=== PATIENT | female | born 1955 | race Caucasian/White ===

== ENCOUNTER 2022-08-06 14:59 | Inpatient (IN) ==
[2022-08-06] MEDS ORDERED: SODIUM CHLORIDE 0.9% 500 ML IV STA (15:16)
--- NOTE | 2022-08-06 15:24 | Emergency Department Note ---
Impression & Plan Anemia, Weakness ED Provider Note NAME: TELLY SANCHEZ AGE: 66 SEX: F : 1955 ARRIVES VIA: Walk-In INFORMANT: Patient, ED PROVIDER(S): Mathieu Obregon DO CHIEF COMPLAINT: Weakness HPI: The patient is a 66-year-old female who presented to the emergency department for an evaluation of generalized weakness. The patient states that she recently moved to our area from [place]. She is originally from [facility] but lived in [place] most recently. She started having the symptoms last fall. She was having weakness and was diagnosed with anemia. She had a complete GI work-up which included an upper and a lower endoscopy. No source for her anemia could be found. She was doing well. She has no significant past medical history but does take a proton pump inhibitor because of the aforementioned issues. She states that she was getting established with a new primary care physician. She started having return of her weakness especially over the last few days. She had laboratory studies as well as an EKG. She was told to go to the emergency department because of her hemoglobin being low. She denies having any black or bloody bowel movements. She does complain of some generalized weakness especially with exertion. She complains of shortness of breath with exertion. ROS: See above HPI for pertinent positives & negatives. A total of 10 systems reviewed and were otherwise negative. PAST MEDICAL HISTORY: See Below PAST SURGICAL HISTORY: See Below FAMILY HISTORY: See Below SOCIAL HISTORY: See Below HOME MEDICATIONS: See Below ALLERGIES: See Below VITALS: See Below PHYSICAL EXAMINATION: GENERAL: Patient is awake alert in no acute distress patient is resting comfortably and showing no signs of anxiety EYES: The conjunctivae are pale. The pupils are round and reactive. EARS, NOSE, MOUTH AND THROAT: The nose is without any evidence of any deformity. Mucous membranes are moist. Tongue is midline. NECK: The neck is nontender and supple. RESPIRATORY: Normal respiratory effort is noted there is no evidence of wheezing rhonchi or rales CARDIOVASCULAR: Tachycardic but regular heart sounds were noted to auscultation. There is no definite murmur. GASTROINTESTINAL: The abdomen is soft. Abdomen is nontender. Rectal exam revealed brown stool which was heme-negative. MUSCULOSKELETAL/EXTREMITIES: There is no evidence of gross deformity full range of motion is noted in the hips and shoulders. SKIN: There is no obvious evidence of any rash. There are no petechiae, pallor or cyanosis noted. NEUROLOGIC: Patient is awake alert and oriented x3. MEDICAL DECISION MAKING: The patient is a 66-year-old female who presented to the emergency department for an evaluation of generalized weakness. The patient has had similar episodes in the past. She has undergone a work-up last fall for anemia. She is never required blood transfusion. She had an upper as well as lower endoscopy which did not explain the patient's symptoms. The patient started having worsening symptoms and she presented to a new family doctor locally. She recently moved to the area. She was called today and told to go directly to the emergency depa rtment because the results of her blood draw. She was found to have significant anemia in the emergency department. Due to concerns of the significant anemia as well as her tachycardia and her symptoms I do feel the patient does require blood transfusion at this time. I did consent the patient for blood transfusion. I discussed her condition with the on-call [facility] hospitalist. They have agreed to evaluate the patient in the emergency department for further management and disposition. Triage Nursing notes reviewed. Prior medical records reviewed Vital Signs: reviewed and remarkable for tachycardia. Differential diagnosis: Infection, dehydration, metabolic abnormality, hypo/hyperglycemia, electrolyte disturbance, anemia, hypoxia, cardiac sources, intracerebral event, toxicologic, neurologic, as well as other pathologies. ER treatment provided: See below Diagnostics interpreted by me: ECG: EKG was obtained in the emergency department. My interpretation is normal sinus rhythm at [address] segment depressions were noted with inferior Q waves. No previous tracing was available. There was no ectopy. Cardiac Monitoring: An order was placed for continuous cardiac monitoring. The monitor shows a rate of 101 bpm with sinus tachycardia. Laboratory studies: As stated above and show below. Imaging studies: See below. Radiographic imaging was reviewed by myself Consultation(s): I discussed this case with Dr. Rosales [facility] COURSE: Procedures: none Critical Care: I have personally spent greater than 45 minutes of critical care time in the direct management of this patient. This includes bedside care, interpretation of diagnostic studies, and testing, discussion with consultants, patient, and family members, and other required patient management activities. This 45 minutes is in excess of all separately billable procedures. Past Med/Surg History Social History Smoking Status: Former smoker Preferred Language: Hebrew Feels Safe at Home: Yes Allergies Allergies Allergy/AdvReac Type Severity Reaction Status Date / Time No Known Allergies Allergy Unverified 08/06/22 17:01 Home Meds Home Medications Medication Instructions Recorded Confirmed pantoprazole 40 mg tablet,delayed 40 mg PO QAM 08/06/22 08/06/22 release Results & Data (ED) Vital Signs Vital Signs - 24 hr 08/06/22 15:00 08/06/22 15:00 08/06/22 15:15 Temperature 36.6 C Temperature Source Temporal Artery Scan Pulse Rate 121 H 101 H Pulse Rate [Apical] 121 H Respiratory Rate 16 16 Blood Pressure 152/68 H Blood Pressure [Left Arm] 152/68 H Blood Pressure Mean 96 Blood Pressure Mean [Left Arm] 96 Pulse Oximetry 98 98 Sepsis Recent Fever Within 48 Hours No Sepsis New/Unexplained Change in Mental Status N/A Sepsis Action Taken by Nursing No Action Required Home Medications Current Medication List: was personally reviewed by me Laboratory Data Attestation: I reviewed the patient's lab results. 08/06/22 15:53 08/06/22 15:17 Lab Results 08/06/22 08/06/22 08/06/22 Range/Units 15:17 15:17 15:17 WBC 8.58 (4.8-10.8) K/ul RBC 1.35 L (4.20-5.40) M/uL Hgb 4.4 L* (12.0-16.0) g/dl Hct 14.7 L* (37.0-47.0) % MCV 108.9 H (80.0-100.0) fL MCH 32.6 (25.0-34.0) pg MCHC 29.9 L (32.0-36.0) g/dL RDW Coeff of Tiburcio 32.0 H (11.5-14.5) % Plt Count 480 H (130-400) K/uL MPV 12.7 H (9.4-12.4) fL Immature Gran % (Auto) 2.6 % Neut % (Auto) 69.9 % Lymph % (Auto) 8.9 % Clay % (Auto) 17.8 % Eos % (Auto) 0.3 % Baso % (Auto) 0.5 % Reticulocyte % (Auto) 2.8 H (0.5-2.0) % Neut # (Auto) 6.00 (1.40-6.50) K/uL Lymph # (Auto) 0.76 L (1.2-3.4) K/uL Clay # (Auto) 1.53 H (0.11-0.59) K/uL Eos # (Auto) 0.03 (0-0.50) K/uL Baso # (Auto) 0.04 (0-0.2) K/uL Reticulocyte # 0.04 (0.02-0.10) 10^6/uL Immature Gran # (Auto) 0.22 H (0.01-0.20) K/uL Absolute Nucleated RBC 0.09 (0-0.12) K/uL Nucleated RBC % (auto) 1.0 % Platelet Estimate Increased H (Normal) Polychromasia 1+ Hypochromasia Present Anisocytosis Present Tear Drop Cells 2+ Ovalocytes 1+ Schistocytes 1+ PT 11.4 (9.0-12.0) Seconds INR 1.1 (0.9-1.1) APTT 21.8 (21.0-31.0) Seconds PTT Ratio 0.8 Sodium 137 (136-145) mmol/L Potassium 4.2 (3.5-5.1) mmol/L Chloride 105 (98-107) mmol/L Carbon Dioxide 24 (21-32) mmol/L Anion Gap 8 (3-11) BUN 19 (6-23) mg/dl Creatinine 0.87 (0.6-1.2) mg/dl Est Cr Clr Drug Dosing 76.8 ml/min Est GFR ( Amer) 81.0 ml/min Est GFR (Non-Af Amer) 69.9 ml/min BUN/Creatinine Ratio 21.8 H (10-20) Glucose 127 H (70-99(Fasting)) mg/dl Calcium 9.2 (8.5-10.1) mg/dl Total Bilirubin 0.8 (0.2-1.0) mg/dl Direct Bilirubin 0.2 (0-0.2) mg/dl AST 11 L (13-39) U/L ALT 8 (7-52) U/L Alkaline Phosphatase 64 (34-104) U/L Troponin I High Sens 4.3 (0-14) pg/ml Total Protein 7.2 (6.0-8.3) gm/dl Albumin 4.2 (3.4-5.0) gm/dl Globulin 3.0 (2.5-4.0) gm/dl Albumin/Globulin Ratio 1.4 (0.9-2) Lipase 5 L (11-82) U/L SARS-CoV-2, RNA, NAAT (NEGATIVE) Blood Type Blood Type Recheck Antibody Screen Crossmatch 08/06/22 08/06/22 08/06/22 Range/Units 15:17 15:39 16:03 WBC (4.8-10.8) K/ul RBC (4.20-5.40) M/uL Hgb (12.0-16.0) g/dl Hct (37.0-47.0) % MCV (80.0-100.0) fL MCH (25.0-34.0) pg MCHC (32.0-36.0) g/dL RDW Coeff of Tiburcio (11.5-14.5) % Plt Count (130-400) K/uL MPV (9.4-12.4) fL Immature Gran % (Auto) % Neut % (Auto) % Lymph % (Auto) % Clay % (Auto) % Eos % (Auto) % Baso % (Auto) % Reticulocyte % (Auto) (0.5-2.0) % Neut # (Auto) (1.40-6.50) K/uL Lymph # (Auto) (1.2-3.4) K/uL Clay # (Auto) (0.11-0.59) K/uL Eos # (Auto) (0-0.50) K/uL Baso # (Auto) (0-0.2) K/uL Reticulocyte # (0.02-0.10) 10^6/uL Immature Gran # (Auto) (0.01-0.20) K/uL Absolute Nucleated RBC (0-0.12) K/uL Nucleated RBC % (auto) % Platelet Estimate (Normal) Polychromasia Hypochromasia Anisocytosis Tear Drop Cells Ovalocytes Schistocytes PT (9.0-12.0) Seconds INR (0.9-1.1) APTT (21.0-31.0) Seconds PTT Ratio Sodium (136-145) mmol/L Potassium (3.5-5.1) mmol/L Chloride (98-107) mmol/L Carbon Dioxide (21-32) mmol/L Anion Gap (3-11) BUN (6-23) mg/dl Creatinine (0.6-1.2) mg/dl Est Cr Clr Drug Dosing ml/min Est GFR ( Amer) ml/min Est GFR (Non-Af Amer) ml/min BUN/Creatinine Ratio (10-20) Glucose (70-99(Fasting)) mg/dl Calcium (8.5-10.1) mg/dl Total Bilirubin (0.2-1.0) mg/dl Direct Bilirubin (0-0.2) mg/dl AST (13-39) U/L ALT (7-52) U/L Alkaline Phosphatase (34-104) U/L Troponin I High Sens (0-14) pg/ml Total Protein (6.0-8.3) gm/dl Albumin (3.4-5.0) gm/dl Globulin (2.5-4.0) gm/dl Albumin/Globulin Ratio (0.9-2) Lipase (11-82) U/L SARS-CoV-2, RNA, NAAT NEGATIVE (NEGATIVE) Blood Type B Negative Blood Type Recheck B Negative Antibody Screen NEGATIVE Crossmatch See Detail Administered Medications Discontinued Medications Sodium Chloride (Nss) 500 mls @ 999 mls/hr IV .Q31M STA Stop: 08/06/22 15:46 Last Infusion: 08/06/22 15:57 Dose: 0 mls/hr Documented By: Admin: 08/06/22 15:23 Dose: 999 mls/hr Documented By: AB Imaging Data Attestation: I personally reviewed and interpreted this imaging study as follows: My Impression: 1 view chest x-ray was obtained in the emergency department. My interpretation is no free air, no definite filtrate. Radiologist's Impression: Chest X-Ray 08/06/22 16:09 SINGLE VIEW CHEST CLINICAL HISTORY: Generalized weakness. FINDINGS: An AP, portable, upright chest radiograph is obtained. No prior studies are available for comparison at the time of dictation. The examination is degraded by portable technique and apical lordotic positioning. A hiatal hernia is suspected. The heart is top normal for projection noting ather osclerotic calcification of the thoracic aorta. The pulmonary vasculature is noncongested. The lungs and pleural spaces are clear. No pneumothorax is seen. The skeletal structures appear osteopenic. The bony thorax is grossly intact. IMPRESSION: No acute cardiopulmonary abnormality. ACT 112: Negative or not required by law. Electronically signed by: Nick Velazquez M.D. 08/06/2022 4:47 PM Discharge Plan Visit Data Chief Complaint: Referred by Doctor Stated Complaint: REF BY DOC,NEEDS BLOOD TRANSFUSION ED Provider: Mathieu Obregon Discharge Problem: Anemia, Weakness Patient Disposition: Being Evaluated by Hospitalist Forms Stand Alone Forms: [facility] Doctor Fun Prescriptions Prescriptions: No Action pantoprazole 40 mg Tablet,Delayed Release (Dr/Ec) 40 mg PO QAM Referrals Referrals: PCP,NO [Physician] -
[2022-08-06 16:07] LABS: INR 1.1 (0.9-1.1); Partial Thromboplastin Ratio 0.8; Partial Thromboplastin Time 21.8 Seconds (21.0-31.0); Prothrombin Time 11.4 Seconds (9.0-12.0)
[2022-08-06] MEDS ORDERED: SODIUM CHLORIDE 0.9% 250 ML IV PRN (16:10)
[2022-08-06 16:12] LABS: Albumin Globulin Ratio 1.4 (0.9-2); Albumin Level 4.2 gm/dl (3.4-5.0); BUN Creatinine Ratio 21.8 (10-20); Bilirubin Direct 0.2 mg/dl (0-0.2); Bilirubin,Total 0.8 mg/dl (0.2-1.0); Calcium 9.2 mg/dl (8.5-10.1); Creatinine Clr Calc Pharmacy 76.8 ml/min; Est GFR (Non-African American) 69.9 ml/min; Potassium 4.2 mmol/L (3.5-5.1); Total Protein 7.2 gm/dl (6.0-8.3)
[2022-08-06 16:15] LABS: Hematocrit (blood only) 14.7 % (37.0-47.0); Hemoglobin 4.4 g/dl (12.0-16.0); Mean Corpuscular Hemoglobin 32.6 pg (25.0-34.0); Mean Corpuscular Hgb Conc 29.9 g/dL (32.0-36.0); Mean Corpuscular Volume 108.9 fL (80.0-100.0); Mean Platelet Volume 12.7 fL (9.4-12.4); Nucleated RBC # (auto) 0.09 K/uL (0-0.12); Platelet Count 480 K/uL (130-400); Red Blood Count 1.35 M/uL (4.20-5.40); White Blood Count 8.58 K/ul (4.8-10.8)
[2022-08-06 16:16] LABS: Troponin I High Sensitivity 4.3 pg/ml (0-14)
[2022-08-06 16:31] LABS: Anisocytosis Present; Basophils # (auto) 0.04 K/uL (0-0.2); Basophils % (auto) 0.5 %; Eosinophils # (auto) 0.03 K/uL (0-0.50); Eosinophils % (auto) 0.3 %; Hypochromasia Present; Immature Granulocytes # (auto) 0.22 K/uL (0.01-0.20); Immature Granulocytes % (auto) 2.6 %; Lymphocytes # (auto) 0.76 K/uL (1.2-3.4); Lymphocytes % (auto) 8.9 %; Monocytes # (auto) 1.53 K/uL (0.11-0.59); Monocytes % (auto) 17.8 %; Neutrophils % (auto) 69.9 %; Ovalocytes 1+; Platelet Estimate Increased (Normal); Polychromasia 1+; Reticulocyte % 2.8 % (0.5-2.0); Reticulocytes # 0.04 10^6/uL (0.02-0.10); Schistocytes 1+; Tear Drop Cells 2+
--- NOTE | 2022-08-06 16:49 | XRay Report ---
SINGLE VIEW CHEST CLINICAL HISTORY: Generalized weakness. FINDINGS: An AP, portable, upright chest radiograph is obtained. No prior studies are available for c omparison at the time of dictation. The examination is degraded by portable technique and apical lord otic positioning. A hiatal hernia is suspected. The heart is top normal for projection noting atheros clerotic calcification of the thoracic aorta. The pulmonary vasculature is noncongested. The lungs an d pleural spaces are clear. No pneumothorax is seen. The skeletal structures appear osteopenic. The b jose thorax is grossly intact. IMPRESSION: No acute cardiopulmonary abnormality. ACT 112: Negative or not required by law. Electronically signed by: Nick Velazquez M.D. 08/06/2022 4:47 PM
--- NOTE | 2022-08-06 17:20 | History & Physical Report ---
Date of Service August 06, 2022 Assessment & Plan (1) Anemia: Plan: Subhash is a 66-year-old female with a past history of epigastric discomfort/GERD who recently moved to [place] from [place] who was referred for progressive weakness and fatigue and is found to have anemia with a hemoglobin of 4.4 on admission. She did have a EGD/colonoscopy 6 months ago while in [place], thinks there may have been a small ulcer in which she was put on a daily PPI at that time but did not require blood or other intervention. She has had no hematochezia or melena. She has not had any chest pain. She is tolerating severe anemia relatively well clinically, suspect that this is a chronic slow bleed rather than acute drop. Anemia Given tolerance of severe anemia to 4.4 without chest pain, and minimal lightheadedness likely chronic bleed. Reports she did have a epigastric tender spot which improved 6 months ago after being started on daily Protonix. Endoscopy/colonoscopy was performed by Dr. Galdamez in [place], [place]. Record pending, office was closed at time of patient admission. Hemoglobin 4.4 on admission, no baseline available MCV 108 Patient has not had any melena or hematochezia. BUN is not elevated. Creatinine is 0.87. 2 units of blood pending, repeat H&H after first unit. Transfuse for hemoglobin of less than 7 or acutely symptomatic less than 8 ? Flow murmur. Echo pending H&H posttransfusion, and then every 8 hours Discussed with GI. Formal consult deferred as patient is with minimal symptoms despite critically low H&H suggesting a chronic bleed. Will transfuse with blood, follow for stability and repeat EGD/[place] as outpatient. If patient becomes hemodynamically unstable, has clinical melena/bleeding, or has persistently decreasing/unstable H&H consult at that time. Troponin 4.3, no chest pain. EKG sinus tach Folic acid, iron panel + ferritin, B12 pending No suppression of platelets or leukocytes, defer blood smear at this time (2) Weakness: Plan: Suspect 2/2 anemia treated as above (3) GERD (gastroesophageal reflux disease): Plan: PPI twice daily as noted Plan DVT prophylaxis: Pharmacal prophylaxis contraindicated in the setting of anemia. SCDs CODE STATUS: Full code Disposition: PCU Diet: Clears History of Present Illness Primary Care Provider: Sylvain Sanchez reports she has chronic anemia without evidence o fbleeding. Presents with gradually worsening weakness/fatigue over 6 months acutely worse in the last week. Had blood tests last fall in [place]. Had a colonoscopy/endoscopy 01/2022 which did not show any signs of bleeding. She thinks possibly a nonbleeding ulcer but does not remember. Was started on protonix daily. Was performed by Dr. Galdamez in [place], [place]. After seeing her doctors in [place] and taking protonix she was tired, but generally felt OK. Did no have additional followup, and did require any transufsion prior to her admission today. Has been establishing with Dr. Noble PCP here. Has not seen GI here. On outpatient visit was recommended for ER eval of pallor/anemia/weakness No bloody or black bowel movements No abdominal pain Did have some epigastric pain in the fall which improved with protonix No chest pain, chest pressure, or shortness of breath. Has not passed out +fatigue, no syncope or presyncope. Some slight dizziness last few days, Found out last Thursday she has a heart murmur, no other heart problems No lung disease No kidney disease No family history of bleeding problems or blood clots. No FHx of early CA. Father did have bipass for CAD in mid 60s. No hx of DM in first degree relatives. Medical History: Reviewed Medications: Reviewed Surgical History: Reviewed Family history: Reviewed Allergies: Reviewed Social History: NO tobacco, rare social alcohol less than monthly. No recreational drug use. Code Status: Full. Surrogate DM would be sister Radha Reddy. Allergies Allergy/AdvReac Type Severity Reaction Status Date / Time No Known Allergies Allergy Unverified 08/06/22 17:01 Home Medications Medication Instructions Recorded Confirmed Type pantoprazole 40 mg tablet,delayed 40 mg PO QAM 08/06/22 08/06/22 History release Past Med/Surg History Medical History (Updated 08/06/22 @ 17:30 by Mariano Márqeuz MD) GERD (gastroesophageal reflux disease) Social History Smoking Status: Former smoker Preferred Language: Irish Feels Safe at Home: Yes Review of Systems Review of Systems: All systems reviewed & are unremarkable except as noted in HPI & below Physical Exam Physical Exam: General: A&Ox3. NAD. Cooperative. Significant pallor. No acute distress HEENT: Atraumatic, normocephalic. Pupils equal and reactive to light. Vision and hearing grossly intact. Pulm: CTAB A&P. -wheezes, -rales, -rhonchi. Symmetrical chest rise. No increased work of breathing. No respiratory distress. Cardiac: RRR, holosystolic murmur is present. Radial pulses intact and symmetrical. Abdominal: Nontender, nondistended, soft. BS present. no epigastric pain on exam. Extremities: Warm, dry. Form Setter strength, ankle dorsiflexion/plantarflexion, hip flexion in bed 5/5 and sensation soft touch intact in hands and feet. Cap refill less than 2 seconds in R hallux. Results & Data Results & Data Vital Signs (Past 12 Hours) Vital Signs Temp Pulse Pulse Resp BP BP Pulse Ox 08/06/22 15:15 101 H 08/06/22 15:00 121 H 16 152/68 H 98 08/06/22 15:00 36.6 C 121 H 16 152/68 H 98 PG Care Time/CCT Total # of Minutes Spent Total Time Spent with Patient: Total time spent is greater than 50% in coordination of care (as documented) at patient's floor/unit and/or counseling patient: Coding Level of Care Code 17548 INT INP/OBS CARE 3/75MIN Diagnoses Anemia D64.9 Anemia type: unspecified type Weakness R53.1 GERD (gastroesophageal reflux disease) K21.9 (1) Anemia Anemia type: unspecified type Qualified Code(s): D64.9 - Anemia, unspecified
[2022-08-06 18:15] LABS: Ferritin 282.2 ng/ml (8-388)
[2022-08-06] MEDS ORDERED: ACETAMINOPHEN 325 MG TAB PO PRN (19:51)
[2022-08-06] MEDS: PANTOprazole 40 MG in SYRINGE 0 ML IV SCH (22:48)
[2022-08-07 01:39] LABS: Hematocrit (blood only) 19.3 % (37.0-47.0); Hemoglobin 6.1 g/dl (12.0-16.0)
[2022-08-07] MEDS ORDERED: SODIUM CHLORIDE 0.9% 250 ML IV PRN ×2 (01:49→01:51)
--- NOTE | 2022-08-07 07:42 | Hospitalist Progress Note ---
Date of Service August 07, 2022 Assessment & Plan (1) Anemia: Plan: Subhash is a 66-year-old female with a past history of epigastric discomfort/GERD who recently moved to [place] from [place] who was referred for progressive weakness and fatigue and is found to have anemia with a hemoglobin of 4.4 on admission. She did have a EGD/colonoscopy 6 months ago while in [place], thinks there may have been a small ulcer in which she was put on a daily PPI at that time but did not require blood or other intervention. She has had no hematochezia or melena. She has not had any chest pain. She is tolerating severe anemia relatively well clinically, suspect that this is a chronic slow bleed rather than acute drop. Acute Blood loss anemia suspect UGI source, macricytiuc anemia also, severe risk Previous Endoscopy/colonoscopy was performed by Dr. Galdamez in [place], [place]. Record pending, office was closed at time of patient admission. no obvious signs of blood loss -transfused 3 units prbc hemoglobin has been stable on 2 checks after transfusion -bolus protonix 40 mg bid heart murmur, pending echo, unknown if acute or chronic, unknown risk H&H posttransfusion, has remained stable we will check in the morning Discussed with GI. Formal consult deferred as patient is with minimal symptoms despite critically low H&H suggesting a chronic bleed. Will transfuse with blood, follow for stability and repeat EGD/[place] as outpatient. If patient becomes hemodynamically unstable, has clinical melena/bleeding, or has persistently decreasing/unstable H&H consult at that time. (2) Weakness: Plan: Suspect 2/2 anemia treated as above (3) GERD (gastroesophageal reflux disease): Plan: PPI twice daily as noted Plan DVT prophylaxis: Pharmacal prophylaxis contraindicated in the setting of anemia. SCDs CODE STATUS: Full code Advance diet as tolerated Admission and Anticipated Discharge Date Admission Date: August 06, 2022 Subjective Patient is without significant distress. She still denies melena at this time Physical Exam Physical Exam: Physical exam finds her to be pale with skin and conjunctiva. Cardiac exam is regular Abdomen shows no evidence of bruising on her flank however she is morbidly obese with a BMI of 40 may be difficult to see Results & Data Results & Data Vital Signs (Past 12 Hours) Vital Signs Temp Pulse Pulse Resp BP BP Pulse Ox 08/07/22 05:10 98.4 F 82 16 128/53 L 96 08/07/22 04:44 98.4 F 75 20 130/59 L 96 08/07/22 03:44 98.4 F 77 16 130/59 L 95 08/07/22 03:14 98.4 F 77 16 141/60 H 96 08/07/22 02:59 98.4 F 72 16 147/62 H 96 08/07/22 02:35 98.4 F 76 16 161/73 H 93 08/07/22 00:00 79 08/06/22 23:30 153/63 H 08/06/22 23:30 79 16 95 08/06/22 23:15 163/72 H 08/06/22 23:15 72 12 96 08/06/22 23:00 80 15 96 08/06/22 23:00 162/70 H 08/06/22 23:46 99.3 F 08/06/22 22:34 99.3 F 76 16 162/69 H 97 08/06/22 22:33 99.3 F 78 16 158/69 H 98 08/06/22 22:09 99.3 F 88 16 164/67 H 96 08/06/22 21:09 99.3 F 94 H 22 158/67 H 97 08/06/22 20:09 99.5 F 96 H 25 H 165/61 H 97 08/06/22 20:39 99.3 F 94 H 20 155/66 H 99 08/06/22 20:24 99.3 F 86 16 149/76 H 98 08/06/22 20:04 99.5 F 91 H 18 165/61 H 97 O2 Del Method 08/07/22 05:10 08/07/22 04:44 08/07/22 03:44 08/07/22 03:14 08/07/22 02:59 08/07/22 02:35 08/07/22 00:00 08/06/22 23:30 08/06/22 23:30 08/06/22 23:15 08/06/22 23:15 08/06/22 23:00 08/06/22 23:00 08/06/22 23:46 08/06/22 22:34 08/06/22 22:33 08/06/22 22:09 08/06/22 21:09 08/06/22 20:09 Room Air 08/06/22 20:39 08/06/22 20:24 08/06/22 20:04 Laboratory Results Reviewed CBC in the morning reviewed repeat CBC in the afternoon Reviewed PRP PG Care Time/CCT Total # of Minutes Spent Total Time Spent with Patient: Total time spent is greater than 50% in coordination of care (as documented) at patient's floor/unit and/or counseling patient: Coding Level of Care Code 22284 SUB INP/OBS CARE 2/35MIN Diagnoses Anemia D64.9 Anemia type: unspecified type Weakness R53.1 GERD (gastroesophageal reflux disease) K21.9 (1) Anemia Anemia type: unspecified type Qualified Code(s): D64.9 - Anemia, unspecified
[2022-08-07 07:44] LABS: BUN Creatinine Ratio 22.1 (10-20); Calcium 8.6 mg/dl (8.5-10.1); Creatinine Clr Calc Pharmacy 87.2 ml/min; Est GFR (African American) 93.9 ml/min
[2022-08-07] MEDS: PANTOprazole 40 MG in SYRINGE 0 ML IV SCH ×2 (07:51→20:30)
[2022-08-07 07:53] LABS: Anisocytosis Present; Basophils # (auto) 0.05 K/uL (0-0.2); Basophils % (auto) 0.8 %; Eosinophils # (auto) 0.06 K/uL (0-0.50); Hematocrit (blood only) 22.3 % (37.0-47.0); Hemoglobin 7.2 g/dl (12.0-16.0); Immature Granulocytes # (auto) 0.13 K/uL (0.01-0.20); Immature Granulocytes % (auto) 2.2 %; Lymphocytes # (auto) 0.74 K/uL (1.2-3.4); Lymphocytes % (auto) 12.5 %; Mean Corpuscular Hemoglobin 31.7 pg (25.0-34.0); Mean Corpuscular Hgb Conc 32.3 g/dL (32.0-36.0); Mean Corpuscular Volume 98.2 fL (80.0-100.0); Mean Platelet Volume 13.1 fL (9.4-12.4); Monocytes # (auto) 1.26 K/uL (0.11-0.59); Monocytes % (auto) 21.2 %; Neutrophils % (auto) 62.3 %; Nucleated RBC # (auto) 0.07 K/uL (0-0.12); Nucleated RBC % (auto) 1.2 %; Platelet Count 369 K/uL (130-400); RDW Coefficient of Variation 25.3 % (11.5-14.5); RDW Standard Deviation 78.1 fL (36.4-46.3); Red Blood Count 2.27 M/uL (4.20-5.40); White Blood Count 5.94 K/ul (4.8-10.8)
[2022-08-07 12:17] LABS: Hematocrit (blood only) 23.9 % (37.0-47.0); Hemoglobin 7.8 g/dl (12.0-16.0)
[2022-08-07 15:06] LABS: Hematocrit (blood only) 23.2 % (37.0-47.0); Hemoglobin 7.6 g/dl (12.0-16.0); Mean Corpuscular Hemoglobin 32.1 pg (25.0-34.0); Mean Corpuscular Hgb Conc 32.8 g/dL (32.0-36.0); Mean Corpuscular Volume 97.9 fL (80.0-100.0); Mean Platelet Volume 13.1 fL (9.4-12.4); Nucleated RBC # (auto) 0.04 K/uL (0-0.12); Nucleated RBC % (auto) 0.6 %; Platelet Count 375 K/uL (130-400); RDW Coefficient of Variation 26.2 % (11.5-14.5); RDW Standard Deviation 81.7 fL (36.4-46.3); Red Blood Count 2.37 M/uL (4.20-5.40); White Blood Count 6.86 K/ul (4.8-10.8)
--- NOTE | 2022-08-07 18:28 | Hospitalist Progress Note ---
Date of Service August 07, 2022 Assessment & Plan (1) Anemia: Plan: Subhash is a 66-year-old female with a past history of epigastric discomfort/GERD who recently moved to [place] from [place] who was referred for progressive weakness and fatigue and is found to have anemia with a hemoglobin of 4.4 on admission. She did have a EGD/colonoscopy 6 months ago while in [place], thinks there may have been a small ulcer in which she was put on a daily PPI at that time but did not require blood or other intervention. She has had no hematochezia or melena. She has not had any chest pain. She is tolerating severe anemia relatively well clinically, suspect that this is a chronic slow bleed rather than acute drop. Acute Blood loss anemia suspect UGI source, macricytiuc anemia also, severe risk Previous Endoscopy/colonoscopy was performed by Dr. Galdamez in [place], [place]. Record pending, office was closed at time of patient admission. no obvious signs of blood loss -transfused 3 units prbc hemoglobin has been stable on 2 checks after transfusion -bolus protonix 40 mg bid heart murmur, pending echo, unknown if acute or chronic, unknown risk H&H posttransfusion, has remained stable we will check in the morning Discussed with GI. Formal consult deferred as patient is with minimal symptoms despite critically low H&H suggesting a chronic bleed. Will transfuse with blood, follow for stability and repeat EGD/[place] as outpatient. If patient becomes hemodynamically unstable, has clinical melena/bleeding, or has persistently decreasing/unstable H&H consult at that time. morbid obesity, affects health and health care (2) Weakness: Plan: Suspect 2/2 anemia treated as above (3) GERD (gastroesophageal reflux disease): Plan: PPI twice daily as noted Plan DVT prophylaxis: Pharmacal prophylaxis contraindicated in the setting of anemia. SCDs CODE STATUS: Full code Advance diet as tolerated Admission and Anticipated Discharge Date Admission Date: August 06, 2022 Results & Data Results & Data Vital Signs (Past 12 Hours) Vital Signs Temp Pulse Pulse Resp BP BP Pulse Ox 08/07/22 16:00 97.9 F 74 20 143/72 H 96 08/07/22 16:00 81 08/07/22 11:24 97.9 F 71 18 136/78 96 08/07/22 08:00 08/07/22 08:00 90 08/07/22 07:00 98.4 F 90 18 152/73 H 99 08/07/22 07:00 98.4 F 90 20 152/73 H 99 O2 Del Method 08/07/22 16:00 Room Air 08/07/22 16:00 08/07/22 11:24 Room Air 08/07/22 08:00 Room Air 08/07/22 08:00 08/07/22 07:00 Room Air 08/07/22 07:00 PG Care Time/CCT Total # of Minutes Spent Total Time Spent with Patient: Total time spent is greater than 50% in coordination of care (as documented) at patient's floor/unit and/or counseling patient: Coding Level of Care Code None Diagnoses Anemia D64.9 Anemia type: unspecified type Weakness R53.1 GERD (gastroesophageal reflux disease) K21.9 (1) Anemia Anemia type: unspecified type Qualified Code(s): D64.9 - Anemia, unspecified
--- NOTE | 2022-08-07 18:59 | XCELERA ---
[id number]
[2022-08-07 23:43] VITALS: TEMP 98.4; O2SAT 95
[2022-08-08 05:10] LABS: Hematocrit (blood only) 23.9 % (37.0-47.0); Hemoglobin 7.7 g/dl (12.0-16.0); Mean Corpuscular Hemoglobin 31.6 pg (25.0-34.0); Mean Corpuscular Hgb Conc 32.2 g/dL (32.0-36.0); Mean Platelet Volume 12.9 fL (9.4-12.4); Nucleated RBC # (auto) 0.03 K/uL (0-0.12); Nucleated RBC % (auto) 0.5 %; Platelet Count 368 K/uL (130-400); Red Blood Count 2.44 M/uL (4.20-5.40); White Blood Count 6.57 K/ul (4.8-10.8)
[2022-08-08 05:42] LABS: Thyroid Stimulating Hormone 2.071 uIu/ml (0.300-4.500)
[2022-08-08 05:44] LABS: T4 Free Thyroxine 1.02 ng/dl (0.61-1.60)
[2022-08-08 05:49] LABS: BUN Creatinine Ratio 19.8 (10-20); Creatinine Clr Calc Pharmacy 82.9 ml/min; Est GFR (African American) 88.3 ml/min; Est GFR (Non-African American) 76.2 ml/min; Magnesium 2.1 mg/dl (1.7-2.4); Potassium 3.6 mmol/L (3.5-5.1)
[2022-08-08] MEDS: PANTOprazole 40 MG in SYRINGE 0 ML IV SCH (07:34)
[2022-08-08 08:33] VITALS: BP 154/77; PULSE 100
--- NOTE | 2022-08-08 18:40 | Discharge Summary ---
Date of Service August 08, 2022 Admission HPI Per Admitting Provider Laura reports she has chronic anemia without evidence o fbleeding. Presents with gradually worsening weakness/fatigue over 6 months acutely worse in the last week. Had blood tests last fall in [place]. Had a colonoscopy/endoscopy 01/2022 which did not show any signs of bleeding. She thinks possibly a nonbleeding ulcer but does not remember. Was started on protonix daily. Was performed by Dr. Galdamez in [place], [place]. After seeing her doctors in [place] and taking protonix she was tired, but generally felt OK. Did no have additional followup, and did require any transufsion prior to her admission today. Has been establishing with Dr. Noble PCP here. Has not seen GI here. On outpatient visit was recommended for ER eval of pallor/anemia/weakness No bloody or black bowel movements No abdominal pain Did have some epigastric pain in the fall which improved with protonix No chest pain, chest pressure, or shortness of breath. Has not passed out +fatigue, no syncope or presyncope. Some slight dizziness last few days, Found out last Thursday she has a heart murmur, no other heart problems No lung disease No kidney disease No family history of bleeding problems or blood clots. No FHx of early [place]. Fa ther did have bipass for CAD in mid 60s. No hx of DM in first degree relatives. Medical History: Reviewed Medications: Reviewed Surgical History: Reviewed Family history: Reviewed Allergies: Reviewed Social History: NO tobacco, rare social alcohol less than monthly. No recreational drug use. Code Status: Full. Surrogate DM would be sister Radha Reddy. Principal Diagnosis Acute blood loss anemia Discharge Exam Patient awake alert no distress card exam regular lungs are clear Discharge Data Allergies Allergy/AdvReac Type Severity Reaction Status Date / Time No Known Allergies Allergy Unverified 08/06/22 17:01 Consultations 08/06/22 17:10 ED Decision to Admit Stat Hospital Course (1) Anemia: Subhash is a 66-year-old female with a past history of epigastric discomfort/GERD who recently moved to [place] from [place] who was referred for progressive weakness and fatigue and is found to have anemia with a hemoglobin of 4.4 on admission. She did have a EGD/colonoscopy 6 months ago while in [place], thinks there may have been a small ulcer in which she was put on a daily PPI at that time but did not require blood or other intervention. She has had no hematochezia or melena. She has not had any chest pain. She is tolerating severe anemia relatively well clinically, suspect that this is a chronic slow bleed rather than acute drop. Acute Blood loss anemia suspect UGI source, macrocytic anemia Previous Endoscopy/colonoscopy was performed by Dr. Galdamez in [place], [place]. Record pending, office was closed at time of patient admission. no obvious signs of blood loss -transfused 3 units prbc hemoglobin has been stable on 2 checks after transfusion -1 week of Carafate 4 times a day then continue with concurrent protonix 40 mg bid heart murmur, echocardiogram shows EF greater than 70 no regional wall motion abnormalities moderate concentric LVH mild to moderate mitral regurgitation pulmonary hypertension H&H posttransfusion, has remained stable Discussed with GI. Formal consult deferred as patient is with minimal symptoms despite critically low H&H suggesting a chronic bleed. Did transfuse with blood, follow for stability and repeat EGD/[place] as outpatient. I morbid obesity, affects health and health care (2) Weakness: Suspect 2/2 anemia treated as above (3) GERD (gastroesophageal reflux disease): PPI twice daily as noted Plan CODE STATUS: Full code Advance diet as tolerated Total Time Total Time Spent Total Time Spent (In Minutes): It required greater than 30 minutes to prepare this patient for discharge Discharge Plan Discharge Items Patient Disposition: Home - Self-Care Reason For Visit: ANEMIA HGB 4.4 Discharge Diagnosis: acute anemia, suspect GI blood loss Activity: Resume your previous activity Non-emergency contact: Primary Care Provider and [employer] Try [employer] Setter Call non-emergency contact if: your symptoms worsen Follow-up/Referrals: Justus Pimentel DO [Physician] - 08/11/22 2:40 pm (will be seen by Era Chambers) Sylvain Whipple [Primary Care Provider] - Diet: Regular Addtl Attending Provider Instructions: You had significant anemia and required blood transfusions will be beneficial that he of an excellent diet to replete which but he needs to make more blood in addition to taking a multiple vitamin with iron. And we recommend you follow-up with your primary care physician and also have an appointment with gastroenterology likely for endoscopy in the outpatient office. It is advisable that you avoid foods and drinks that irritate your stomach this will include citric or acidic type foods and drinks that contain the same or alcoholic drinks. Certainly limiting caffeine will be helpful to also improve your stomach healing Pending Studies at Discharge: No Stand-Alone Forms: My [facility], Smoking Cessation Medications and DC Order Prescriptions: New sucralfate [Carafate] 1 gram tablet 1 g PO ACHS Qty: 30 0RF Changed pantoprazole 40 mg Tablet,Delayed Release (Dr/Ec) 40 mg PO BID Qty: 60 3RF Discharge Orders: Discharge Order (Routine); Ordered 08/08/22 Ordered By: Jimenez Christensen Admission Data Admit Date/Time: 08/06/22 17:43 Attending Provider: Jimenez Christensen Admit Provider: Mariano Márquez Primary Care Provider: Sylvain Whipple Other Providers: Mariano Márquez Other Interventions: Discharge Summary Assessment (RN) Last Done: 08/08/22 09:55 Coding Level of Care Code 52628 INP/OBS DISCH >30 MIN Diagnoses Anemia D64.9 Anemia type: unspecified type Weakness R53.1 GERD (gastroesophageal reflux disease) K21.9
--- NOTE | 2022-08-08 23:47 | Electrocardiogram Report ---
Test Reason : Blood Pressure : / mmHG Vent. Rate : 097 BPM Atrial Rate : 097 BPM P-R Int : 134 ms QRS Dur : 084 ms QT Int : 358 ms P-R-T Axes : 042 050 021 degrees QTc Int : 454 ms Poor data quality, interpretation may be adversely affected Normal sinus rhythm Nonspecific T wave abnormality No previous ECGs available Confirmed by Rodrigo Patel ([id number]) on 08/08/2022 11:46:59 PM Referred By: Confirmed By:Rodrigo Patel
== END 2022-08-08 10:57 | disposition home or self-care (01) | DRG 812 ==
LOC: ED 14:59 → 1E 17:43 → SUATTDRO 17:43 → 1E 19:37